=== PATIENT | female | born 1950 | race Caucasian/White ===

== ENCOUNTER 2017-07-05 11:43 | Emergency (ER) | payer MEDICARE ==
[2017-07-05 12:34] LABS: #Eosinphils 0.2 thou/uL (0.0-0.7); #Lymphocytes 1.6 thou/uL (1.20-3.40); #Monocytes 0.4 thou/uL (0.11-0.59); #Neutrophils 1.8 thou/uL (1.40-6.50); %Basophils 1.2 % (0.0-1.0); %Eosinophils 5.2 % (0.0-10.0); %Lymphocytes 39.6 % (21.0-51.0); %Monocytes 9.1 % (0.0-10.0); Hematocrit 42.9 % (36.0-47.0); Mean Platelet Volume 6.7 fL (7.4-10.4)
[2017-07-05] MEDS ORDERED: Aspirin 325 MG TAB ONE (12:35)
[2017-07-05] MEDS ORDERED: Mag-Al 1200 mg/1200 mg/30 ML UDCUP ONE (12:35)
[2017-07-05] MEDS ORDERED: Lidocaine Viscous Sol 2% 15 ml UD Cup ONE (12:35)
--- NOTE | 2017-07-05 12:35 | RAD ---
SINGLE VIEW OF THE CHEST: Comparison: None. History: Chest pain. FINDINGS: Single view of the chest shows a normal sized cardiomediastinal silhouette. There is no evidence of consolidation, mass, or pleural effusion. The bones are unremarkable. IMPRESSION: No evidence of acute cardiopulmonary disease. POS: [facility]
[2017-07-05 12:57] LABS: ALT (SGPT) 13 U/L (8-55); AST (SGOT) 16 U/L (5-34); Alkaline Phosphatase 92 U/L (40-150); Anion Gap 12 mmol/L (10-20); BUN (Urea Nitrogen) 14 mg/dL (9.8-20.1); Bilirubin, Total 0.6 mg/dL (0.2-1.2); CK (CPK) 42 U/L (29-168); Calc. Creatinine Clearance 0 mL/min (70-130); Calcium 9.2 mg/dL (7.8-10.44); Carbon Dioxide 26 mmol/L (23-31); Chloride 106 mmol/L (98-107); Estimated GFR-MDRD Greater than 90; Globulin 3.2 g/dL (2.4-3.5); Lipase 29 U/L (8-78); Protein, Total 6.9 g/dL (6.0-8.3)
[2017-07-05 13:02] LABS: Troponin I 0.012 ng/mL (< 0.028)
== END 2017-07-05 15:00 | disposition home or self-care (01) ==
LOC: ERS 11:43
DX: K21.9 Gastro-esophageal reflux disease without esophagitis (principal); R07.89 Other chest pain; J43.9 Emphysema, unspecified; F32.9 Major depressive disorder, single episode, unspecified
CPT/HCPCS: 36415; 71010; 80053; 82553; 83690; 84484; 85025; 93005; 94760

== ENCOUNTER 2018-06-30 14:05 | Emergency (ER) | payer MEDICARE ==
--- NOTE | 2018-06-30 14:33 | RAD ---
LEFT KNEE 4 VIEWS: HISTORY: Left knee pain. COMPARISON: 07/04/2016. FINDINGS: Mild joint space narrowing medial compartment. Prominent tricompartmental osteophytosis. No acute f racture or dislocation. Mild fluid distention of the suprapatellar bursa. IMPRESSION: Joint fluid may reflect effusion from otherwise moderate osteoarthritis changes. POS: [facility]
[2018-06-30] MEDS ORDERED: Ketorolac Tromethamine 60 MG/2 ML VIAL ONE (14:36)
--- NOTE | 2018-06-30 14:56 | ULT ---
VENOUS DUPLEX SONOGRAM LEFT LOWER EXTREMITY: HISTORY: Left leg pain and edema. FINDINGS: The left common femoral vein and greater saphenous junction were evaluated along with the femoral, de ep femoral, popliteal, and posterior tibial veins. There is good color and spectral Doppler flow, co mpression, and augmentation. IMPRESSION: No sonographic evidence of deep vein thrombosis left lower extremity. POS: [facility]
== END 2018-06-30 15:28 | disposition home or self-care (01) ==
LOC: ERS 14:05
DX: M17.12 Unilateral primary osteoarthritis, left knee (principal); F32.9 Major depressive disorder, single episode, unspecified; M19.90 Unspecified osteoarthritis, unspecified site; Z87.442 Personal history of urinary calculi; Z79.899 Other long term (current) drug therapy; X50.1XXA Overexertion from prolonged static or awkward postures, initial encounter
CPT/HCPCS: 96372; J1885

== ENCOUNTER 2018-08-11 13:04 | Emergency (ER) | payer MEDICARE ==
--- NOTE | 2018-08-11 13:38 | RAD ---
PORTABLE CHEST 1 VIEW: Date: 08/11/18 Time: 1332 hours HISTORY: Cough. FINDINGS: Comparison made with exam of 07/05/17. The heart is enlarged. Aorta is tortuous. Lungs are expanded without focal areas of consolidation, pn eumothorax, kacy pulmonary edema, or pleural effusions. IMPRESSION: No acute process. POS: [facility]
[2018-08-11] MEDS ORDERED: predniSONE 20 MG TAB ONE (14:30)
== END 2018-08-11 14:36 | disposition home or self-care (01) ==
LOC: ERS 13:04
DX: J40 Bronchitis, not specified as acute or chronic (principal); F32.9 Major depressive disorder, single episode, unspecified
CPT/HCPCS: 71045; 94640; J7506; J7620

== ENCOUNTER 2018-10-04 13:12 | Emergency (ER) | payer MEDICARE ==
--- NOTE | 2018-10-04 16:13 | ULT ---
ULTRASOUND WITH DOPPLER DUPLEX VENOUS LOWER EXTREMITY LEFT: HISTORY: 67-year-old female with left lower extremity pain. TECHNIQUE: Color flow Doppler, spectral waveform analysis of pulsed Doppler, and jacobsen-scale imaging with kitty jean claude and augmentation, were used to evaluate the left common femoral, femoral, popliteal, posterior t ibial, and superficial femoral, veins; and the proximal portions of the profunda femoral and greater saphenous, veins. FINDINGS: There is normal compressibility, demonstration of blood flow by color Doppler and pulsed Doppler, and response to augmentation, in all interrogated veins. IMPRESSION: Negative. No deep vein thrombosis in the left lower extremity. jn[] POS: [facility]
== END 2018-10-04 16:45 | disposition home or self-care (01) ==
LOC: ERS 13:12
DX: M79.89 Other specified soft tissue disorders (principal); M19.90 Unspecified osteoarthritis, unspecified site; F32.9 Major depressive disorder, single episode, unspecified; Z87.442 Personal history of urinary calculi; Z79.899 Other long term (current) drug therapy

== ENCOUNTER 2019-05-14 12:18 | Emergency (ER) | payer MEDICARE ==
[2019-05-14] MEDS ORDERED: Triple Antibiotic Oint 1 GM Packet ONE (13:38)
[2019-05-14] MEDS ORDERED: Acetaminophen 500 MG TAB ONE (13:50)
--- NOTE | 2019-05-14 13:58 | RAD ---
LUMBAR SPINE 3 VIEWS: HISTORY: Low back pain. FINDINGS: Multilevel degenerative changes are present. No fracture, subluxation, or bony destruction is identi fied. IMPRESSION: Lumbar spondylosis. POS: [facility]
== END 2019-05-14 14:03 | disposition home or self-care (01) ==
LOC: ERS 12:18
DX: M54.5 Low back pain (principal); J43.9 Emphysema, unspecified; M19.90 Unspecified osteoarthritis, unspecified site; F32.9 Major depressive disorder, single episode, unspecified
CPT/HCPCS: 72100

== ENCOUNTER 2019-05-27 12:19 | Emergency (ER) | payer MEDICARE ==
[2019-05-27] MEDS ORDERED: ISOVUE-370 76%-LOCM 1 ML ONE (13:13)
[2019-05-27] MEDS ORDERED: Ketorolac Tromethamine 30 MG/ML VIAL ONE (13:53)
[2019-05-27] MEDS ORDERED: Dexamethasone 10 MG/ML VIAL ONE (13:53)
[2019-05-27 14:37] LABS: #Eosinphils 0.2 thou/uL (0.0-0.7); #Lymphocytes 1.4 thou/uL (1.20-3.40); #Monocytes 0.5 thou/uL (0.11-0.59); %Basophils 0.8 % (0.0-1.0); %Eosinophils 3.1 % (0.0-10.0); %Lymphocytes 26.9 % (21.0-51.0); %Monocytes 10.3 % (0.0-10.0); %Neutrophils 58.8 % (42.0-75.0); Hemoglobin 13.1 g/dL (12.0-16.0); Mean Corpuscular HGB CONC 32.2 g/dL (32.0-36.0); Mean Corpuscular Hemoglobin 28.6 pg (27.0-31.0); Mean Corpuscular Volume 88.7 fL (78.0-98.0); Mean Platelet Volume 6.9 fL (7.4-10.4); Platelet Count 213 thou/uL (130-400); RBC Distribution Width 12.5 % (11.5-14.5); White Blood Cell (WBC) Count 5.2 thou/uL (4.8-10.8)
--- NOTE | 2019-05-27 14:39 | CT ---
CT OF THE LUMBAR SPINE: DATE: 05/27/2019. COMPARISON: None. HISTORY: Back pain. TECHNIQUE: Axial CT imaging obtained at 2.5 mm intervals through the lumbar spine without contrast. Coronal and sagittal reformatted imaging obtained. FINDINGS: There is a questionable partially imaged mass in the left lower quadrant, only partially imaged on th is examination measuring 4.8 cm in transverse dimension seen on image 102. Recommend CT of the abdom en/pelvis for full assess. There are clips in the right upper quadrant. Evaluation for central canal and/or neural foraminal stenosis is limited on routine CT. There is no anterolisthesis or retrolisthesis noted within the lumbar spine. T12-L1: Disk space narrowing and anterior osteophyte formation with no osseous cause of significant central canal or neural foraminal stenosis. L1-2: Bilateral facet hypertrophy. Disk space narrowing with prominent anterior osteophyte formatio n and vacuum disk formation. No osseous cause of significant central canal or neural foraminal steno sis. L2-3: Bilateral facet hypertrophy. Prominent anterior and right lateral osteophyte formation with n o osseous cause of significant central canal or neural foraminal stenosis. L3-4: Mild bilateral facet hypertrophy. Prominent anterior and right lateral osteophyte formation. No osseous cause of significant central canal stenosis. Probable mild bilateral neural foraminal st enosis. L4-5: Prominent bilateral facet hypertrophy. T here is disk space narrowing and anterior osteophyte formation with probable mild bilateral neural foraminal stenosis. L5-S1: Bilateral facet hypertrophy. Probable mild bilateral neural foraminal stenosis. No osseous cause of significant central canal stenosis. No acute fracture or evidence of dislocation seen withi n the lumbar spine. IMPRESSION: 1. Multilevel degenerative change. No acute osseous abnormality. If there are radicular symptoms, MRI is advised. 2. Questionable 4.8 cm mass within the left lower quadrant for which dedicated CT examination of the abdomen/pelvis is advised. CODE T POS: [facility]
[2019-05-27 14:58] LABS: ALT (SGPT) 16 U/L (8-55); AST (SGOT) 16 U/L (5-34); Albumin 3.9 g/dL (3.4-4.8); Alkaline Phosphatase 92 U/L (40-150); Anion Gap 11 mmol/L (10-20); BUN (Urea Nitrogen) 15 mg/dL (9.8-20.1); Bilirubin, Total 0.4 mg/dL (0.2-1.2); Calc. Creatinine Clearance 0 mL/min (70-130); Calcium 9.1 mg/dL (7.8-10.44); Carbon Dioxide 26 mmol/L (23-31); Chloride 108 mmol/L (98-107); Estimated GFR-MDRD Greater than 90; Globulin 2.5 g/dL (2.4-3.5); Glucose 86 mg/dL (80-115); Protein, Total 6.4 g/dL (6.0-8.3); Sodium 141 mmol/L (136-145)
--- NOTE | 2019-05-27 15:31 | CT ---
EXAM: Abdomen and pelvic CT scan with contrast: HISTORY: Back pain COMPARISON: None FINDINGS: The visualized lung bases are clear. Liver: Unremarkable. Gallbladder:Status post cholecystectomy. Pancreas:Unremarkable Spleen:Unremarkable. Adrenal glands:Unremarkable. Kidneys:No renal calculus or acute obstruction. No solid or cystic renal mass. No evidence for bowel obstruction. No CT evidence for acute appendicitis. The urinary bladder is unremarkable. There is a 7.1 x 8.1 cm diameter thin-walled cyst in the left upper lateral pelvis and lower quadrant of the abdomen. This could possibly represent a mesenteric cyst, an adnexal cyst, or lymphocele or other thin-walled cystic mass. Patient is status post hysterectomy. No abscess, adenopathy, or abnormal fluid collection within the abdomen or pelvis. IMPRESSION: 7.1 x 8.1 cm diameter thin-walled cyst in the left upper lateral pelvis and lower quadrant of the abd omen as above. No evidence for other significant acute process.
[2019-05-27 15:51] LABS: Bilirubin Negative (Negative); Blood, Urine Trace (Negative); Clarity Clear (Clear); Glucose, Urine (Dipstick) Normal (Negative); Leukocyte Negative Leu/uL (Negative); Nitrite Negative (Negative); Protein, Urine (Dipstick) Negative (Neg-Trace); RBC/HPF 0-3 HPF (0-3); Urobilinogen Normal mg/dL (Less than 2); WBC/HPF 0-3 HPF (0-3)
[2019-05-27 15:58] LABS: Bacteria/HPF 1+ HPF (None Seen)
== END 2019-05-27 16:03 | disposition home or self-care (01) ==
LOC: ERS 12:19
DX: M54.5 Low back pain (principal); M19.90 Unspecified osteoarthritis, unspecified site; J43.9 Emphysema, unspecified; F32.9 Major depressive disorder, single episode, unspecified; Z79.899 Other long term (current) drug therapy
CPT/HCPCS: 72131; 74177; 80053; 81003; 81015; 85025; 96360; 96361; 96372; J1100; J1885; Q9966

== ENCOUNTER 2019-07-09 12:30 | Inpatient (IN) | payer MEDICARE ==
[2019-07-09 13:13] VITALS: BMI 51.7
[2019-07-18] MEDS ORDERED: Bupivacaine/Epinephrine 0.25% 30 ML VIAL ONE (10:54)
[2019-07-18] MEDS ORDERED: Lidocaine 1% (PF) 30 ML VIAL ONE (11:10)
[2019-07-18] MEDS ORDERED: Fentanyl 100 MCG/2 ML VIAL ONE ×3 (11:10→14:10)
[2019-07-18] MEDS ORDERED: Midazolam HCl 2 mg/2 ml Vial ONE (11:10)
[2019-07-18] MEDS ORDERED: Ondansetron HCl/PF 4 MG/2 ML Vial IVP PRN (13:44)
[2019-07-18] MEDS ORDERED: Promethazine HCl 25 MG/ML VIAL IM PRN (13:44)
[2019-07-18] MEDS ORDERED: Promethazine HCl 25 MG/ML VIAL SLOW IVP PRN (13:44)
--- NOTE | 2019-07-18 14:07 | OP ---
DATE OF PROCEDURE: 07/18/2019 CONSULTING PHYSICIAN: Dr. Gregory Silverio. REASON FOR CONSULTATION: Left adnexal mass. 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 She underwent diagnostic laparoscopy with laparoscopic hand-assisted removal of the cyst by Dr. Sotomayor. During her portion of the surgery, which is a separate dictation, Dr. Sotomayor encountered the cyst and was found to be adnexal in origin from the left side with adhesions to the colon. I was requested for intraoperative consultation. Upon presentation, I found the patient to be asleep with a hand-assisted GelPOINT port and [address] Sotomayor had completed lysis of adhesions and removal of the colon from the medial aspect of the left adnexum. DESCRIPTION OF PROCEDURE: I scrubbed in to go over this portion of the case from Dr. Sotomayor. Using hand-assisted technique and a 5 mm LigaSure, curved, the left adnexa, which was enlarged and cystic and appeared to be an ovary with fallopian tube over the surface was dissected free of the left pelvic sidewall. The LigaSure was used to coagulate and transect any vessels that were encountered after insertion in the adnexal mass. Because of the patient's obesity, definitive identification of the ureter on the left was not able to be performed. However, all surgical technique was performed on tension with dissection and no evidence of injury to the ureter or suspicion of injury to the ureter on the left was accomplished. The specimen was finally removed intact, and a laparoscopic retrieval bag was placed inside the abdominal cavity, and the specimen was removed through the GelPort that was for hand assist. Completion of the case was carried out by Dr. Monet Sotomayor to close the fascia and incisions. PLAN: The patient will be follow up on outpatient basis at [facility] with followup on the pathology of the left adnexa. Right adnexa was attempted to be identified, and however, no right adnexa was found on exam intraoperatively, and suspicion is that it had been removed at the patient's previous hysterectomy. Job ID: [id number]
[2019-07-18] MEDS ORDERED: Promethazine HCl 25 MG/ML VIAL ONE (14:10)
[2019-07-18] MEDS ORDERED: Morphine 2 MG/ML SYRINGE SLOW IVP PRN (15:42)
[2019-07-18] MEDS ORDERED: Ondansetron PF 4 MG/2 ML Vial SLOW IVP PRN (15:43)
[2019-07-18] MEDS: Sodium Chloride 0.9% 1,000 ML IV SCH ×2 (16:04→23:12)
[2019-07-18] MEDS: Acetaminophen 1,000 MG in Premix Bag 1 BAG IVPB SCH ×2 (18:06→23:12)
[2019-07-19] MEDS: traMADol HCl 50 MG TAB PO PRN ×2 (02:33→06:30)
[2019-07-19] MEDS: Acetaminophen 1,000 MG in Premix Bag 1 BAG IVPB SCH (05:36)
[2019-07-19] MEDS ORDERED: FLU VACC TS2019-20(65YR UP)/PF 180 MCG/0.5 ML SYRINGE IM ONE (09:00)
[2019-07-19] MEDS ORDERED: Pantoprazole 40 MG VIAL IVP SCH (09:00)
[2019-07-19 15:26] VITALS: BP 131/67; TEMP 98.3
--- NOTE | 2019-07-19 16:07 | PDOC.OP ---
Operative Note - Operative Note Operative Note: PROCEDURE: Laparoscopic hand-assisted lysis of adhesions; assist for left oophorectomy SURGEON: Monet Sotomayor M.D. DATE: 07/19/2019 PREOPERATIVE DIAGNOSIS: Mesenteric cyst POSTOPERATIVE DIAGNOSIS: Left ovarian cyst HISTORY: Patient with incidentally noted large cyst which was felt to be likely a mesenteric cyst by radiology. Preoperative ovarian and GI tumor markers were normal and she decided to proceed with excision. PROCEDURE IN DETAIL: After informed consent was obtained and appropriate preoperative antibodies were administered the patient was taken to the operating room. She was placed in supine position and general endotracheal anesthesia was administered. She was prepped and draped in a standard sterile fashion and a 7 cm periumbilical incision made. Dissection was carried down to the fascia which was incised in the midline. The peritoneum was identified grasped and incised under direct vision. There were no significant adhesions in the supraumbilical area but there were significant omental adhesions at the level of the umbilicus and below. These were taken down through the avascular plane under direct vision until a space was cleared large enough for the hand port. This was placed and carbon dioxide gas was insufflated to an intra- abdominal pressure 15 which the patient tolerated well. Dissecting ports were placed in the epigastric and right lateral positions under direct laparoscopic vision and the remaining omental adhesions taken down through the avascular plane using LigaSure. The large cyst was easily visible in the left lower quadrant. There were omental adhesions to the cyst which were taken down using LigaSure, but the cyst did not appear to be arising from the omentum. It appeared to be most adherent to the left lateral sidewall. The cyst was found to be quite adherent to the sigmoid colon medially as well, and these adhesions were taken down through the avascular plane taking care not to use cautery in the vicinity of the colon. The adhesions were not to the colon itself but the appendix epiploica, portions of which were left adherent to the cyst rather than risk rupture. Once the colon was mobilized away from the cyst the base of the cyst was able to be examined and was found to be arising from the left adnexa. The fimbria were visible and there was a small whitish lump on the superior aspect of the cyst consistent with an atrophic residual ovary. At this point Dr. Silverio of [employer] was consulted and he performed a left oophorectomy is dictated under separate cover. After removal of the left ovary, the dissecting trochars were removed under direct vision and hemostasis verified. The GelPort was then removed and Seprafilm placed between the omentum and the abdominal wall. The fascia was closed under direct vision with running PDS suture with excellent technical result. The subcutaneous tissues were copiously irrigated and reapproximated with 3-0 Monocryl suture. The skin incisions were closed with 4-0 Monocryl suture and Dermabond dressings were placed. The patient was extubated and taken to recovery in good condition. Estimated blood loss is minimal. There were no complications. Specimen is left ovary.
== END 2019-07-19 13:50 | disposition home or self-care (01) | DRG 742 ==
LOC: SURG A 07-18 09:29 → EDSTATUS 07-18 12:30 → SURG A 07-18 15:41
PROVIDERS: ADMIT Surgery; ATTEND Surgery
PROC: 0UB10ZZ Excision of Left Ovary, Open Approach (ICD-10-PCS; principal; 2019-07-19)
DX: N83.202 Unspecified ovarian cyst, left side (principal); Z68.43 Body mass index [BMI] 50.0-59.9, adult; E66.01 Morbid (severe) obesity due to excess calories; J43.9 Emphysema, unspecified; Z90.710 Acquired absence of both cervix and uterus
CPT/HCPCS: 88305; 90471; 90662; C9113; G0008; J0131; J0690; J2001; J2250; J2270; J2550; J3010

== ENCOUNTER 2019-07-09 12:50 | Outpatient (CLI) | payer MEDICARE ==
[2019-07-09 13:58] LABS: #Basophils 0.1 thou/uL (0.0-0.2); #Eosinphils 0.2 thou/uL (0.0-0.7); #Lymphocytes 1.5 thou/uL (1.20-3.40); #Monocytes 0.4 thou/uL (0.11-0.59); #Neutrophils 2.3 thou/uL (1.40-6.50); %Basophils 1.2 % (0.0-1.0); %Eosinophils 4.4 % (0.0-10.0); %Monocytes 8.3 % (0.0-10.0); %Neutrophils 52.1 % (42.0-75.0); Hemoglobin 13.2 g/dL (12.0-16.0); Mean Corpuscular HGB CONC 33.1 g/dL (32.0-36.0); Mean Corpuscular Hemoglobin 29.6 pg (27.0-31.0); Mean Corpuscular Volume 89.4 fL (78.0-98.0); Mean Platelet Volume 6.8 fL (7.4-10.4); Platelet Count 217 thou/uL (130-400); Red Blood Cell (RBC) Count 4.46 mill/uL (4.20-5.40); White Blood Cell (WBC) Count 4.4 thou/uL (4.8-10.8)
[2019-07-09 14:17] LABS: Anion Gap 15 mmol/L (10-20); BUN (Urea Nitrogen) 13 mg/dL (9.8-20.1); Calc. Creatinine Clearance 0 mL/min (70-130); Calcium 9.2 mg/dL (7.8-10.44); Carbon Dioxide 25 mmol/L (23-31); Chloride 105 mmol/L (98-107); Estimated GFR-MDRD Greater than 90; Glucose 103 mg/dL (80-115); Potassium 3.8 mmol/L (3.5-5.1); Sodium 141 mmol/L (136-145)
== END 2019-07-09 12:51 | disposition home or self-care (01) ==
LOC: LABBT 12:50
PROVIDERS: ATTEND Surgery
DX: Z01.812 Encounter for preprocedural laboratory examination (principal); R19.00 Intra-abdominal and pelvic swelling, mass and lump, unspecified site
CPT/HCPCS: 80048; 85025

== ENCOUNTER 2019-11-03 07:40 | Observation (INO) | payer MEDICARE ==
[2019-11-03] MEDS ORDERED: Aspirin Chewable 81 MG TAB ONE (08:06)
[2019-11-03 08:13] LABS: #Eosinphils 0.2 thou/uL (0.0-0.7); #Lymphocytes 1.6 thou/uL (1.20-3.40); #Monocytes 0.3 thou/uL (0.11-0.59); #Neutrophils 2.4 thou/uL (1.40-6.50); %Basophils 0.2 % (0.0-1.0); %Eosinophils 5.1 % (0.0-10.0); %Lymphocytes 35.4 % (21.0-51.0); %Monocytes 6.5 % (0.0-10.0); %Neutrophils 52.8 % (42.0-75.0); Hemoglobin 13.8 g/dL (12.0-16.0); Mean Corpuscular HGB CONC 34.1 g/dL (32.0-36.0); Mean Corpuscular Hemoglobin 30.4 pg (27.0-31.0); Mean Platelet Volume 6.9 fL (7.4-10.4); Platelet Count 205 thou/uL (130-400); RBC Distribution Width 12.1 % (11.5-14.5); Red Blood Cell (RBC) Count 4.55 mill/uL (4.20-5.40); White Blood Cell (WBC) Count 4.6 thou/uL (4.8-10.8)
[2019-11-03 08:36] LABS: ALT (SGPT) 16 U/L (8-55); AST (SGOT) 21 U/L (5-34); Alkaline Phosphatase 116 U/L (40-110); Anion Gap 13 mmol/L (10-20); BUN (Urea Nitrogen) 14 mg/dL (9.8-20.1); Bilirubin, Total 0.4 mg/dL (0.2-1.2); CK (CPK) 46 U/L (29-168); Calc. Creatinine Clearance 0 mL/min (70-130); Calcium 9.2 mg/dL (7.8-10.44); Carbon Dioxide 26 mmol/L (23-31); Chloride 107 mmol/L (98-107); Estimated GFR-MDRD Greater than 90; Globulin 3.2 g/dL (2.4-3.5); Glucose 119 mg/dL (80-115); Potassium 4.2 mmol/L (3.5-5.1); Protein, Total 7.2 g/dL (6.0-8.3); Sodium 142 mmol/L (136-145)
--- NOTE | 2019-11-03 09:07 | RAD ---
PORTABLE CHEST: HISTORY: Chest pain. COMPARISON: 08/11/2018 FINDINGS: Heart size appears enlarged. There are atherosclerotic changes of the aorta. The lungs are clear of a ny infiltrates. IMPRESSION: Cardiomegaly. No acute findings. POS: [facility]
[2019-11-03] MEDS ORDERED: Ondansetron PF 4 MG/2 ML Vial ONE (10:40)
[2019-11-03] MEDS ORDERED: Nitroglycerin 2% Ointment 1 INCH/1 GM Packet ONE (10:40)
[2019-11-03] MEDS ORDERED: Nitroglycerin 0.4 MG TAB 1 EACH ONE (10:40)
[2019-11-03] MEDS ORDERED: Nitroglycerin 0.4 MG TAB (25 Tab Bottle) PO PRN (11:08)
[2019-11-03] MEDS ORDERED: Mag-Al Plus 1200 MG/1200 MG/120 MG/30 ML UDCUP PO PRN (11:41)
--- NOTE | 2019-11-03 11:46 | PDOC.HHP ---
Hospitalist HPI - History of Present Illness Heartburn History of Present Illness: This is a very pleasant 68-year-old female with past medical history of mild emphysema who presented to the hospital with complaints of "heartburn" that woke her from sleep earlier today. The patient reported intermittent episodes of heartburn that are usually very infrequent but this episode was more severe and persisted until she presented to the ER. The patient describes the sensation as burning sensation in the middle of her chest not associated with nausea or vomiting or food ingestion. Hospitalist ROS - Review of Systems All other systems reviewed; all pertinent +/- noted in HPI/Subj Hospitalist History - Past Medical History Pulmonary: reports: emphysema - Past Surgical History Past Surgical History: reports: , Hysterectomy - Family History Family History: reports: no pertinent history - Social History Smoking Status: Never smoker Alcohol: reports: None Drugs: reports: none Activity level: independent ambulation - Exam General Appearance: NAD, awake alert Eye: PERRL, anicteric sclera ENT: normocephalic atraumatic, no oropharyngeal lesions, moist mucosa Neck: supple, no JVD Heart: RRR, no murmur, no gallops, no rubs, normal peripheral pulses Respiratory: CTAB, no wheezes, no rales, no ronchi, normal chest expansion, no tachypnea, normal percussion Gastrointestinal: soft, non-tender, non-distended, normal bowel sounds, no palpable masses, no hepatomegaly, no splenomegaly, no bruit Neurological: cranial nerve grossly intact, normal sensation to touch, no weakness, no focal deficits, no new deficit Hospitalist Results - Labs Result Diagrams: 11/03/19 08:04 11/03/19 08:04 Lab results: WBC 4.6 thou/uL (4.8-10.8) L 11/03/19 08:04 Hgb 13.8 g/dL (12.0-16.0) 11/03/19 08:04 Hct 40.5 % (36.0-47.0) 11/03/19 08:04 MCV 89.0 fL (78.0-98.0) 11/03/19 08:04 Plt Count 205 thou/uL (130-400) 11/03/19 08:04 Neutrophils % 52.8 % (42.0-75.0) 11/03/19 08:04 Sodium 142 mmol/L (136-145) 11/03/19 08:04 Potassium 4.2 mmol/L (3.5-5.1) 11/03/19 08:04 Chloride 107 mmol/L (98-107) 11/03/19 08:04 Carbon Dioxide 26 mmol/L (23-31) 11/03/19 08:04 BUN 14 mg/dL (9.8-20.1) 11/03/19 08:04 Creatinine 0.63 mg/dL (0.6-1.1) 11/03/19 08:04 Glucose 119 mg/dL (80-115) H 11/03/19 08:04 Calcium 9.2 mg/dL (7.8-10.44) 11/03/19 08:04 Total Bilirubin 0.4 mg/dL (0.2-1.2) 11/03/19 08:04 AST 21 U/L (5-34) 11/03/19 08:04 ALT 16 U/L (8-55) 11/03/19 08:04 Alkaline Phosphatase 116 U/L (40-110) H 11/03/19 08:04 Creatine Kinase 46 U/L (29-168) 11/03/19 08:04 Troponin I Less than 0.010 ng/mL (< 0.028) 11/03/19 07:51 Serum Total Protein 7.2 g/dL (6.0-8.3) 11/03/19 08:04 Albumin 4.0 g/dL (3.4-4.8) 11/03/19 08:04 - EKG Interpretation EKG: NSR Hospitalist H&P A/P - Problem (1) Heartburn Code(s): R12 - HEARTBURN Status: Acute (2) Chest pain Code(s): R07.9 - CHEST PAIN, UNSPECIFIED Status: Acute (3) Emphysema (subcutaneous) (surgical) resulting from a procedure Code(s): T81.82XA - EMPHYSEMA (SUBCUTANEOUS) RESULTING FROM A PROCEDURE, INIT Status: Acute (4) Obesity Code(s): E66.9 - OBESITY, UNSPECIFIED Status: Acute - Plan Plan: The patient's presentation is atypical for cardiac chest pain. Her risk factors include obesity, history of passive smoking, and elevated blood pressure that was reported in the ER, however patient denies previous history of hypertension. I will further risk stratify by checking hemoglobin A1c and lipid panel. Initial troponin was unremarkable. I will check another set of troponin and schedule a stress test tomorrow for further risk stratification. I will treat her heartburn with famotidine 20 mg orally twice daily and Maalox every 6 hours as needed and monitor her response.
[2019-11-03] MEDS ORDERED: Amlodipine 5 MG TAB ONE (11:57)
[2019-11-03 12:04] LABS: Troponin I Less than 0.010 ng/mL (< 0.028)
[2019-11-03 13:07] VITALS: BMI 51.5
[2019-11-03 14:34] LABS: Troponin I Less than 0.010 ng/mL (< 0.028)
[2019-11-03 17:53] LABS: Troponin I Less than 0.010 ng/mL (< 0.028)
[2019-11-03] MEDS ORDERED: Acetaminophen 325 MG TAB PO PRN (19:04)
[2019-11-03] MEDS: Famotidine 20 MG TAB PO SCH (20:09)
[2019-11-03] MEDS ORDERED: Metoprolol Tartrate 25 MG TAB PO SCH (21:00)
[2019-11-04 04:58] LABS: #Eosinphils 0.2 thou/uL (0.0-0.7); #Lymphocytes 1.4 thou/uL (1.20-3.40); #Monocytes 0.4 thou/uL (0.11-0.59); #Neutrophils 2.6 thou/uL (1.40-6.50); %Basophils 0.9 % (0.0-1.0); %Eosinophils 3.8 % (0.0-10.0); %Monocytes 9.3 % (0.0-10.0); Hemoglobin 12.2 g/dL (12.0-16.0); Mean Corpuscular HGB CONC 32.6 g/dL (32.0-36.0); Mean Corpuscular Volume 89.1 fL (78.0-98.0); Platelet Count 190 thou/uL (130-400); RBC Distribution Width 11.9 % (11.5-14.5); Red Blood Cell (RBC) Count 4.21 mill/uL (4.20-5.40); White Blood Cell (WBC) Count 4.7 thou/uL (4.8-10.8)
[2019-11-04 05:03] LABS: Hemoglobin A1c 5.4 % (4.0-6.0)
[2019-11-04 05:17] LABS: Anion Gap 9 mmol/L (10-20); BUN (Urea Nitrogen) 14 mg/dL (9.8-20.1); Calc. Creatinine Clearance 186 mL/min (70-130); Calcium 8.7 mg/dL (7.8-10.44); Carbon Dioxide 28 mmol/L (23-31); Cardiac Risk 3.6 (Less than 4.5); Chloride 106 mmol/L (98-107); Cholesterol 195 mg/dl (< 200 Desired); Estimated GFR-MDRD Greater than 90; Glucose 95 mg/dL (80-115); HDL Cholesterol 54 mg/dL (>60 Neg Risk); LDL Cholesterol, Calculated 124 mg/dL; Potassium 3.9 mmol/L (3.5-5.1); Sodium 139 mmol/L (136-145); Triglycerides 86 mg/dL (Less than 150)
[2019-11-04] MEDS ORDERED: Aspirin 81 mg Enteric Coated Tablet PO SCH (09:00)
[2019-11-04] MEDS ORDERED: Enoxaparin Sodium 40 MG/0.4 ML SYRINGE SC SCH (09:00)
[2019-11-04] MEDS: Famotidine 20 MG TAB PO SCH (09:13)
--- NOTE | 2019-11-04 15:02 | NM ---
EXAM: Nuclear medicine cardiac perfusion examination with ejection fraction HISTORY: Chest pain TECHNIQUE: Stress images: 33 mCi of technetium 9M sestamibi; Lexiscan COMPARISON: None FINDINGS: Tomographic images: No perfusion defects seen on the nonattenuation corrected images with stress. Gated images: Normal wall motion and ejection fraction of 68%. EDV: 106 mL LHR: 0.5 IMPRESSION: No perfusion defects seen with stress.
[2019-11-04] MEDS ORDERED: Regadenoson 0.4 MG/5 ML SYRINGE ONE (15:20)
[2019-11-04 15:50] VITALS: BP 135/63; TEMP 98.2
--- NOTE | 2019-11-04 20:51 | DIS ---
DATE OF ADMISSION: 11/03/2019 DATE OF DISCHARGE: 11/04/2019 ATTENDING PHYSICIAN: Shanna Rasmussen MD HISTORY OF PRESENT ILLNESS AND HOSPITAL COURSE: This is a very pleasant 68-year-old female with past medical history of mild emphysema, who presented to the hospital with complains of burning sensation in her chest that started while sleeping earlier on the day of admission. The patient reported intermittent episodes of heartburn that are usually very infrequent, but the episode on the day of admission was persistent until she presented in the ER. The patient denied any nausea, vomiting, palpitations, shortness of breath, or cough. She also denied any exertional chest pain. Her presentation was most likely gastrointestinal related, especially that her symptoms resolved with initiation of famotidine. However, due to her age and the fact that coronary artery disease can present atypically in females, we opted to observe the patient overnight to rule out coronary artery disease. Her EKG, troponins, and stress test were all unremarkable. DISCHARGE DIAGNOSES: 1. Heartburn. 2. Chest pain. 3. Emphysema. 4. Obesity. DISCHARGE MEDICATIONS: 1. Tylenol Regular Strength 650 mg orally q.8 hours as needed for pain. 2. Famotidine 20 mg orally twice daily, 60 tablets. 3. Aspirin/caffeine 500 mg/32.5 mg two tablets orally daily. DISCHARGE INSTRUCTIONS: The patient was instructed to increase her activities, decrease late night snacks, decrease her intake of chocolate, caffeine, or spicy meals. She was also scheduled to follow up with her family doctor in 1 week. Job ID: [id number]
--- NOTE | 2019-11-09 14:51 | EKG ---
Test Reason : Blood Pressure : / mmHG Vent. Rate : 112 BPM Atrial Rate : 112 BPM P-R Int : 166 ms QRS Dur : 088 ms QT Int : 316 ms P-R-T Axes : 061 050 031 degrees QTc Int : 431 ms Sinus tachycardia Otherwise normal ECG Confirmed by GERI TRINH MD ([id number]), multimedia editor JIE ARREAGA ([id number]) on 11/09/2019 2:51:12 PM Referred By: Confirmed By:GERI TRINH MD
== END 2019-11-04 18:16 | disposition home or self-care (01) ==
LOC: ERS 07:40 → 2SW 11:14
PROVIDERS: ADMIT Internal Medicine; ATTEND Internal Medicine
DX: R12 Heartburn (principal); R07.89 Other chest pain; J43.9 Emphysema, unspecified; M19.90 Unspecified osteoarthritis, unspecified site; F32.9 Major depressive disorder, single episode, unspecified; I10 Essential (primary) hypertension; E66.9 Obesity, unspecified; Z68.43 Body mass index [BMI] 50.0-59.9, adult; Z77.22 Contact with and (suspected) exposure to environmental tobacco smoke (acute) (chronic); Z88.1 Allergy status to other antibiotic agents; Z88.5 Allergy status to narcotic agent
CPT/HCPCS: 71045; 78452; 80048; 80053; 80061; 82550; 83036; 84484 ×2; 85025 ×2; 93005; 93017; 94760 ×2; 96374; 97139 ×2; 99285; A9500; G0378 ×3; 36415; J2405; J2785

== ENCOUNTER 2020-09-15 17:43 | Emergency (ER) | payer MEDICARE ==
[2020-09-15] MEDS ORDERED: Ketorolac Tromethamine 30 MG/ML VIAL ONE (19:29)
[2020-09-15] MEDS ORDERED: Acetaminophen 500 MG TAB ONE (19:29)
--- NOTE | 2020-09-15 20:03 | RAD ---
RIGHT HUMERUS RADIOGRAPHS TWO VIEWS: 09/15/20 PROVIDED CLINICAL HISTORY: Pain without injury. FINDINGS: There is no evidence for fracture or other acute osseous abnormality. There is mineralization noted a djacent to the greater tuberosity that may reflect changes of calcific paratendonitis. Alignment appe ars anatomic. Joint spaces appear preserved as visualized. IMPRESSION: 1. No evidence for an acute osseous abnormality. If there is persistent clinical concern, conser vative management and follow-up imaging are advised. 2. Findings suggesting calcific paratendonitis. POS: [facility]
--- NOTE | 2020-09-15 21:12 | ULT ---
EXAM: Right upper extremity venous ultrasound HISTORY: Right upper extremity pain and edema COMPARISON: None TECHNIQUE: Multiplanar grayscale and color Doppler images were obtained in a right upper extremity ve nous ultrasound. Spectral analysis of the Doppler waveforms were performed. FINDINGS: The internal jugular vein demonstrates normal compression and flow without evidence of thrombus. The subclavian vein demonstrates normal flow and augmentation without evidence of thrombus. The axillary and brachial veins demonstrate normal compression, flow, and augmentation without eviden ce of thrombus. The venous structures distal to the elbow are patent without thrombus. The cephalic and basilic veins are patent. IMPRESSION: No evidence of DVT.
== END 2020-09-15 21:59 | disposition home or self-care (01) ==
LOC: ERS 17:43
DX: M65.221 Calcific tendinitis, right upper arm (principal); M25.511 Pain in right shoulder; I10 Essential (primary) hypertension; J43.9 Emphysema, unspecified; M19.90 Unspecified osteoarthritis, unspecified site
CPT/HCPCS: 96372; J1885

== ENCOUNTER 2021-03-26 19:02 | Emergency (ER) | payer MEDICARE ==
[2021-03-26] MEDS ORDERED: Ketorolac Tromethamine 30 MG/ML VIAL ONE (20:16)
== END 2021-03-26 21:15 | disposition home or self-care (01) ==
LOC: ERS 19:02
DX: S93.402A Sprain of unspecified ligament of left ankle, initial encounter (principal); S83.92XA Sprain of unspecified site of left knee, initial encounter; M19.90 Unspecified osteoarthritis, unspecified site; J43.9 Emphysema, unspecified; Z87.442 Personal history of urinary calculi; W19.XXXA Unspecified fall, initial encounter
CPT/HCPCS: 96372; J1885

== ENCOUNTER 2021-10-04 14:50 | Emergency (ER) | payer MEDICARE ==
[2021-10-04 17:01] LABS: #Lymphocytes 1.1 thou/uL (1.20-3.40); #Monocytes 0.4 thou/uL (0.11-0.59); #Neutrophils 1.5 thou/uL (1.40-6.50); %Basophils 0.3 % (0.0-1.0); %Eosinophils 1.6 % (0.0-10.0); %Lymphocytes 36.1 % (21.0-51.0); %Monocytes 12.2 % (0.0-10.0); %Neutrophils 49.8 % (42.0-75.0); Hemoglobin 14.5 g/dL (12.0-16.0); Mean Corpuscular HGB CONC 32.3 g/dL (32.0-36.0); Mean Corpuscular Hemoglobin 29.6 pg (27.0-31.0); Mean Corpuscular Volume 91.6 fL (78.0-98.0); Mean Platelet Volume 6.3 fL (7.4-10.4); Platelet Count 147 thou/uL (130-400); RBC Distribution Width 12.5 % (11.5-14.5); Red Blood Cell (RBC) Count 4.89 mill/uL (4.20-5.40)
[2021-10-04 17:33] LABS: ALT (SGPT) 22 U/L (8-55); AST (SGOT) 30 U/L (5-34); Albumin 3.8 g/dL (3.4-4.8); Alkaline Phosphatase 95 U/L (40-110); Anion Gap 11 mmol/L (10-20); BUN (Urea Nitrogen) 13 mg/dL (9.8-20.1); Bilirubin, Total 0.4 mg/dL (0.2-1.2); Calc. Creatinine Clearance 0 mL/min (70-130); Calcium 9.6 mg/dL (7.8-10.44); Carbon Dioxide 30 mmol/L (23-31); Chloride 105 mmol/L (98-107); Globulin 3.3 g/dL (2.4-3.5); Glucose 98 mg/dL (83-110); Potassium 4.1 mmol/L (3.5-5.1); Protein, Total 7.1 g/dL (5.8-8.1); Sodium 142 mmol/L (136-145)
[2021-10-04 19:52] LABS: Bilirubin Negative (Negative); Blood, Urine Negative (Negative); Clarity Clear (Clear); Glucose, Urine (Dipstick) Normal (Negative); Ketone, Urine Negative (Negative); Leukocyte Negative Leu/uL (Negative); Nitrite Negative (Negative); Protein, Urine (Dipstick) Negative (Neg-Trace); Specific Gravity, Urine 1.003 (1.002-1.036); Urobilinogen Normal mg/dL (Less than 2); pH, Urine 6.5 (5.0-9.0)
[2021-10-05 14:27] LABS: SARS-CoV-2 PCR by NAA DETECTED (NotDetected)
== END 2021-10-04 20:40 | disposition home or self-care (01) ==
LOC: ERS 14:50
DX: U07.1 COVID-19 (principal); J18.9 Pneumonia, unspecified organism; J43.9 Emphysema, unspecified
CPT/HCPCS: 71045; 80053; 81003; 85025; 99284; U0003; U0005; 36415

== ENCOUNTER 2021-10-09 12:57 | Emergency (ER) | payer MEDICARE ==
[~2021-10-09 12:57] MED LIST: Iopamidol-370 76% 500 ML 1 ML ONE
[2021-10-09] MEDS ORDERED: Dexamethasone 10 MG/ML VIAL ONE (16:03)
[2021-10-09 16:11] LABS: #Eosinphils 0.1 thou/uL (0.0-0.7); #Lymphocytes 0.8 thou/uL (1.20-3.40); #Monocytes 0.3 thou/uL (0.11-0.59); #Neutrophils 1.6 thou/uL (1.40-6.50); %Basophils 0.1 % (0.0-1.0); %Eosinophils 2.6 % (0.0-10.0); %Lymphocytes 27.8 % (21.0-51.0); %Monocytes 12.4 % (0.0-10.0); %Neutrophils 57.2 % (42.0-75.0); Hemoglobin 13.6 g/dL (12.0-16.0); Mean Corpuscular HGB CONC 32.5 g/dL (32.0-36.0); Mean Corpuscular Hemoglobin 29.2 pg (27.0-31.0); Mean Corpuscular Volume 89.8 fL (78.0-98.0); Mean Platelet Volume 6.7 fL (7.4-10.4); Platelet Count 158 thou/uL (130-400); RBC Distribution Width 12.4 % (11.5-14.5); Red Blood Cell (RBC) Count 4.66 mill/uL (4.20-5.40); White Blood Cell (WBC) Count 2.7 thou/uL (4.8-10.8)
[2021-10-09 16:37] LABS: ALT (SGPT) 17 U/L (8-55); AST (SGOT) 28 U/L (5-34); Albumin 3.5 g/dL (3.4-4.8); Alkaline Phosphatase 78 U/L (40-110); Anion Gap 13 mmol/L (10-20); BUN (Urea Nitrogen) 16 mg/dL (9.8-20.1); Bilirubin, Total 0.5 mg/dL (0.2-1.2); CK (CPK) 42 U/L (29-168); Calc. Creatinine Clearance 0 mL/min (70-130); Calcium 8.7 mg/dL (7.8-10.44); Carbon Dioxide 29 mmol/L (23-31); Chloride 105 mmol/L (98-107); Globulin 2.5 g/dL (2.4-3.5); Glucose 106 mg/dL (83-110); Lipase 41 U/L (8-78); Potassium 3.8 mmol/L (3.5-5.1); Sodium 143 mmol/L (136-145)
== END 2021-10-09 17:57 | disposition home or self-care (01) ==
LOC: ERS 12:57
DX: U07.1 COVID-19 (principal); M19.90 Unspecified osteoarthritis, unspecified site
CPT/HCPCS: 71045; 71275; 80053; 82550; 83690; 83880; 84484; 85025; 85379; 93005; 96374; J1100; Q9967

== ENCOUNTER 2022-03-25 13:19 | Emergency (ER) | payer MEDICARE ==
[2022-03-25] MEDS ORDERED: Ketorolac Tromethamine 30 MG/ML VIAL ONE (13:49)
[2022-03-25] MEDS ORDERED: Morphine 2 MG/ML VIAL ONE (13:49)
[2022-03-25 14:01] LABS: #Eosinphils 0.2 thou/uL (0.0-0.7); #Lymphocytes 1.4 thou/uL (1.20-3.40); #Monocytes 0.7 thou/uL (0.11-0.59); #Neutrophils 2.9 thou/uL (1.40-6.50); %Basophils 0.6 % (0.0-1.0); %Eosinophils 4.6 % (0.0-10.0); %Lymphocytes 25.9 % (21.0-51.0); %Monocytes 12.7 % (0.0-10.0); %Neutrophils 56.3 % (42.0-75.0); Hemoglobin 13.1 g/dL (12.0-16.0); Mean Corpuscular Hemoglobin 29.6 pg (27.0-31.0); Mean Corpuscular Volume 92.4 fL (78.0-98.0); Mean Platelet Volume 6.9 fL (7.4-10.4); Platelet Count 187 thou/uL (130-400); Red Blood Cell (RBC) Count 4.43 mill/uL (4.20-5.40); White Blood Cell (WBC) Count 5.2 thou/uL (4.8-10.8)
[2022-03-25 14:21] LABS: ALT (SGPT) 26 U/L (8-55); AST (SGOT) 27 U/L (5-34); Albumin 3.8 g/dL (3.4-4.8); Alkaline Phosphatase 95 U/L (40-110); Anion Gap 16 mmol/L (10-20); BUN (Urea Nitrogen) 13 mg/dL (9.8-20.1); Bilirubin, Total 0.5 mg/dL (0.2-1.2); Calc. Creatinine Clearance 0 mL/min (70-130); Calcium 8.8 mg/dL (7.8-10.44); Carbon Dioxide 27 mmol/L (23-31); Chloride 104 mmol/L (98-107); Estimated GFR 95; Globulin 2.5 g/dL (2.4-3.5); Glucose 102 mg/dL (83-110); Lipase 30 U/L (8-78); Potassium 3.9 mmol/L (3.5-5.1); Protein, Total 6.3 g/dL (5.8-8.1); Sodium 143 mmol/L (136-145)
[2022-03-25 14:50] LABS: SARS-CoV-2 NAA Rapid Test Not Detected (NotDetected)
== END 2022-03-25 14:50 | disposition home or self-care (01) ==
LOC: ERS 13:19
DX: J06.9 Acute upper respiratory infection, unspecified (principal); Z20.822 Contact with and (suspected) exposure to COVID-19; J43.9 Emphysema, unspecified
CPT/HCPCS: 71045; 80053; 83690; 83735; 83880; 84484; 85025; 96374; 99285; U0002; 36415; J1885; J2270

== ENCOUNTER 2022-04-15 17:22 | Emergency (ER) | payer MEDICARE ==
[2022-04-15 18:41] LABS: Bilirubin Negative (Negative); Blood, Urine Negative (Negative); Clarity Clear (Clear); Glucose, Urine (Dipstick) Normal (Negative); Ketone, Urine Negative (Negative); Leukocyte Negative Leu/uL (Negative); Nitrite Negative (Negative); Protein, Urine (Dipstick) Negative (Neg-Trace); Specific Gravity, Urine 1.006 (1.002-1.036); Urobilinogen Normal mg/dL (Less than 2); pH, Urine 7.5 (5.0-9.0)
[2022-04-15] MEDS ORDERED: Ketorolac Tromethamine 30 MG/ML VIAL ONE (19:18)
[2022-04-15] MEDS ORDERED: Diazepam 5 MG TAB ONE (19:18)
== END 2022-04-15 20:15 | disposition home or self-care (01) ==
LOC: ERS 17:22
DX: M54.50 Low back pain, unspecified (principal); J43.9 Emphysema, unspecified
CPT/HCPCS: 81003; 96372; 99283; J1885

== ENCOUNTER 2022-11-01 13:00 | Outpatient (CLI) | payer MEDICARE, OTHER | END 2022-11-01 13:01 | disposition home or self-care (01) | LOC: BICMAMMO 13:00 | PROVIDERS: ATTEND Internal Medicine | DX: Z12.31 Encounter for screening mammogram for malignant neoplasm of breast (principal) | CPT/HCPCS: 77063; 77067 ==

== ENCOUNTER 2023-03-08 06:41 | Day surgery (SDC) | payer OTHER ==
[2023-03-06 15:01] VITALS: BMI 48.3
[2023-03-08] MEDS ORDERED: Lidocaine 1% PF 5 ML VIAL ONE (08:41)
[2023-03-08] MEDS ORDERED: PROPOFOL 200 MG/20 ML VIAL ONE (08:41)
[2023-03-08] MEDS ORDERED: Ondansetron PF 4 MG/2 ML Vial ONE (09:08)
== END 2023-03-08 09:57 | disposition home or self-care (01) ==
LOC: SDC 06:41
PROVIDERS: ATTEND Internal Medicine Gastroenterology
PROC: 0DJD8ZZ Inspection of Lower Intestinal Tract, Via Natural or Artificial Opening Endoscopic (ICD-10-PCS; principal; 2023-03-08)
DX: Z12.11 Encounter for screening for malignant neoplasm of colon (principal); E78.00 Pure hypercholesterolemia, unspecified; Z88.1 Allergy status to other antibiotic agents; Z88.8 Allergy status to other drugs, medicaments and biological substances; Z90.710 Acquired absence of both cervix and uterus; Z79.899 Other long term (current) drug therapy
CPT/HCPCS: J2405; J2704

== ENCOUNTER 2023-11-13 12:56 | Outpatient (CLI) | payer OTHER | END 2023-11-13 12:57 | disposition home or self-care (01) | LOC: BICMAMMO 12:56 | PROVIDERS: ATTEND Internal Medicine | DX: Z12.31 Encounter for screening mammogram for malignant neoplasm of breast (principal) | CPT/HCPCS: 77063; 77067 ==

== ENCOUNTER 2024-03-11 14:48 | Emergency (ER) | payer OTHER ==
[2024-03-11 15:35] LABS: #Basophils 0.03 10x3/uL (0.0-0.2); %Basophils 0.6 % (0.0-1.0); %Eosinophils 2.7 % (0.0-10.0); %Lymphocytes 31.7 % (21.0-51.0); %Monocytes 8.8 % (0.0-10.0); Hematocrit 40.8 % (36.0-47.0); Hemoglobin 13.1 g/dL (12.0-16.0); Mean Corpuscular HGB CONC 32.1 g/dL (32.0-36.0); Mean Corpuscular Hemoglobin 29.5 pg (27.0-31.0); Mean Corpuscular Volume 91.9 fL (78.0-98.0); Mean Platelet Volume 9.1 fL (7.4-10.4); Platelet Count 190 10x3/uL (130-400); RBC Distribution Width 13.3 % (11.5-14.5); Red Blood Cell (RBC) Count 4.44 mill/uL (4.20-5.40)
[2024-03-11 15:50] LABS: Bacteria/HPF None Seen HPF (None Seen); Bilirubin Negative (Negative); Blood, Urine Negative (Negative); CAUTI Indications for Culture Pelvic or flank pain; Clarity Clear (Clear); Glucose, Urine (Dipstick) Normal (Negative); Ketone, Urine Negative (Negative); Leukocyte Negative Leu/uL (Negative); Nitrite Negative (Negative); Protein, Urine (Dipstick) Negative (Neg-Trace); RBC/HPF 0-3 HPF (0-3); Specific Gravity, Urine 1.004 (1.002-1.036); Squamous Epithelial 0-3 HPF (0-3); Urobilinogen Normal mg/dL (Less than 2); WBC/HPF 0-3 HPF (0-3)
[2024-03-11 15:52] LABS: ALT (SGPT) 9 U/L (8-55); AST (SGOT) 16 U/L (5-34); Albumin 3.5 g/dL (3.4-4.8); Alkaline Phosphatase 88 U/L (40-110); Anion Gap 12 mmol/L (10-20); BUN (Urea Nitrogen) 16 mg/dL (9.8-20.1); Calc. Creatinine Clearance 0 mL/min (70-130); Calcium 9.4 mg/dL (7.8-10.44); Carbon Dioxide 24 mmol/L (23-31); Chloride 108 mmol/L (98-107); Estimated GFR 93; Globulin 2.9 g/dL (2.4-3.5); Glucose 96 mg/dL (83-110); Potassium 4.1 mmol/L (3.5-5.1); Protein, Total 6.4 g/dL (5.8-8.1); Sodium 140 mmol/L (136-145)
[2024-03-11 16:09] LABS: Urine Culture Reflex No No
[2024-03-11] MEDS ORDERED: traMADol HCl 50 MG TAB ONE (19:51)
== END 2024-03-11 19:57 | disposition home or self-care (01) ==
LOC: ERS 14:48
DX: N13.2 Hydronephrosis with renal and ureteral calculous obstruction (principal)
CPT/HCPCS: 36415; 74176; 80053; 81001; 85025; 96372